=== PATIENT | male | born 1945 | race Caucasian/White ===

== ENCOUNTER → 2024-11-28 | Outpatient (CLI) | payer OTHER ==
--- NOTE | 2024-11-28 14:04 | HMCIMG ---
US ARTERIAL BILAT LOW EXT DUPL REASON: PVD COMPARISON: None TECHNIQUE: Bilateral lower extremity Doppler evaluation was performed with spectral analysis and color flow imaging. FINDINGS: Right leg shows normal triphasic waveforms present throughout. Waveforms appear preserved and flow velocities are normal. Left leg shows triphasic waveforms present throughout with the exception of the dorsalis pedis which is biphasic. Flow velocities are preserved throughout. IMPRESSION: 1. No evidence of arterial inflow occlusion in either lower extremity.
== END | disposition home or self-care (01) ==
LOC: RAH 13:04
PROVIDERS: ATTEND Internal Medicine
DX: I73.9 Peripheral vascular disease, unspecified (principal)
CPT/HCPCS: 93925